=== PATIENT | female | born 1980 | race Two or more races ===

== ENCOUNTER 2017-06-30 06:03 | Day surgery (SDC) | payer BC ==
[~2017-06-30] VITALS: Ht 165.1 cm; Wt 131.3 kg
--- NOTE | ~2017-06-30 | OR ---
PATIENT'S NAME: CLARA HACKETT [facility] AGE: 36 Y [address] ROOM: [place] [address] [place] [facility] [place]: 06/30/2017 OR/Procedure Report DISCHARGE DATE: FAMILY PHYSICIAN: Leslie Blake MD ATTENDING PHYSICIAN: Atif Baker SURGEON: Atif Baker MD ROOF TILER: Tomi Chinchilla PA-C. DATE OF PROCEDURE: 06/30/2017 PREOPERATIVE DIAGNOSIS: Right thyroid nodule suspicious for malignancy. POSTOPERATIVE DIAGNOSIS: Follicular neoplasm. PROCEDURE PERFORMED: Right thyroid lobectomy. SURGEON: Atif Baker MD. FINDINGS: There was a firm nodule in the mid thyroid posteriorly making dissection near the ligament of Salazar quite difficult. Recurrent laryngeal nerve was able to be identified. This easily stimulated at the conclusion of the case. ESTIMATED BLOOD LOSS: Less than 30 mL. COMPLICATIONS: None. INDICATIONS: The patient is a 36-year-old female who had presented with a right-sided thyroid nodule, this was solitary. We performed biopsy that was suspicious for malignancy, we discussed total thyroidectomy versus lobectomy and frozen section. Ultimately, she wished to proceed with lobectomy. Risks, benefits, and alternatives were discussed with the patient which include, but are not limited to, bleeding, infection, recurrent laryngeal nerve injury, as well as palsy, vascular injury, and need for repeat operations. She understood the risks and elected to proceed. DESCRIPTION OF PROCEDURE: The patient was taken into the operating room. She was supine. She was given IV sedation and subsequently intubated. She had an endotracheal tube in that we could perform nerve monitoring. A collar incision was created within the skin lines, carried into the subcutaneous tissues and through the platysma using electrocautery. Subplatysmal flaps were created. The strap muscles were then divided in the midline, retracted laterally exposing the right thyroid gland. The middle thyroid vein was identified, divided with the Harmonic scalpel. We turned our attention to the superior pole continuing to dissect on the gland, dissect around the superior pole, superior polar vessels were divided with the Harmonic scalpel. We then PATIENT'S NAME: CLARA HACKETT [facility] AGE: 36 Y [address] ROOM: [place] [address] [place] [facility] [place]: 06/30/2017 OR/Procedure Report DISCHARGE DATE: FAMILY PHYSICIAN: Leslie Blake MD ATTENDING PHYSICIAN: Atif Baker turned our attention inferiorly below the ligament of Salazar. We were able to identify the recurrent laryngeal nerve and traced this towards the ligament of Salaazr. This was a very difficult dissection in this area. We further mobilized the inferior pole, divided the inferior polar vessels, continued to dissect out the recurrent laryngeal nerve in order to avoid injury. The nodule was relatively adherent in this area and again was overlying the nerve although did not appear to involve the nerve. We were able to dissect the nerve from the nodule and ultimately able to divide the ligament of Salazar. The recurrent laryngeal nerve was stimulated and appeared to be no injury and prior to this, we had confirmed that this was the nerve by stimulation. The right thyroid gland was then removed from the trachea using electrocautery. This was divided at the isthmus and sent for frozen section. Frozen section revealed a follicular neoplasm. Malignancy could not be called by the pathologist although I did have some concerns about malignancy; however, with no nodules being present in the left, we ultimately elected to complete the operation and wait for final pathology. The operative field was inspected. It appeared hemostatic. The strap muscles were reapproximated in the midline using 3-0 silk suture. The platysma was reapproximated with 3-0 Vicryl suture and skin closed with 4-0 Monocryl suture. Steri-Strips and sterile dressings were placed. The patient was extubated and sent to recovery in good condition. ATIF BAKER MD BJO/modl /[id number] d: 06/30/17 1508 t: 07/07/17 1331, OPERATIVE SUMMARY
[~2017-06-30 06:03] MED LIST: GLUCOPHAGE XR500 M1 PO; GLYXAMBI 25 MG1 EACH PO; IBUPROFEN400 MG PO; MULTI VITAMIN1 EACH PO; OMEPRAZOLE40 MG PO; PRINIVIL (ZESTR20 MG PO; ZOCOR40 MG PO
[2017-06-30] MEDS ORDERED: ASPIRIN LO-DOSE81 MG PO (06:49)
[2017-07-01] MEDS ORDERED: NORCO 5-325 TA1 EACH PO (08:44)
== END 2017-07-01 10:45 | disposition disaster alternative care site (69) ==
LOC: GSDC 06:03 → GMSU 06:03 → GSDC 07-01 10:45
PROC: 0GTH0ZZ Resection of Right Thyroid Gland Lobe, Open Approach (ICD-10-PCS; principal; 2017-06-30)
DX: C73 Malignant neoplasm of thyroid gland (principal); I10 Essential (primary) hypertension; E11.9 Type 2 diabetes mellitus without complications; F32.9 Major depressive disorder, single episode, unspecified; K21.9 Gastro-esophageal reflux disease without esophagitis; J30.2 Other seasonal allergic rhinitis; E78.2 Mixed hyperlipidemia
CPT/HCPCS: J0690; J1100; J2001; J2405; J7030; J7040; J7120

== ENCOUNTER 2017-07-05 09:10 | Day surgery (SDC) | payer BC ==
[~2017-07-05] VITALS: Ht 162.6 cm; Wt 130.0 kg
--- NOTE | ~2017-07-05 | OR ---
PATIENT'S NAME: CLARA HACKETT [facility] AGE: 36 Y [address] ROOM: [address] [address] [place] [facility] [place]: 07/05/2017 OR/Procedure Report DISCHARGE DATE: FAMILY PHYSICIAN: Leslie Blake MD ATTENDING PHYSICIAN: Atif Baker SURGEON: Atif Baker MD GEAR MACHINE OPERATOR GENERAL: Tomi Chinchilla PA-C. DATE OF PROCEDURE: 07/05/2017 PREOPERATIVE DIAGNOSIS: Papillary thyroid cancer right lobe with need for completion thyroidectomy. 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 PROCEDURE: Completion of thyroidectomy. FINDINGS: No nodules were present in the left lobe. No gross evidence of lymph node involvement. ESTIMATED BLOOD LOSS: 30 mL. COMPLICATIONS: None. INDICATIONS: The patient is a 36-year-old female, who had a right lobectomy that revealed a papillary thyroid carcinoma. We felt completion of thyroidectomy and was necessary discussed this with the patient. The risks, benefits, and alternatives, including nerve injury, hypocalcemia. She understood the risks and elected to proceed. DESCRIPTION OF PROCEDURE: The patient was taken to the operating room. She was supine. She was given IV sedation, subsequently intubated. Her neck was prepped with ChloraPrep and sterilely draped. Her previous incision was reopened. The sutures holding the platysma as well as the strap muscles were divided and removed. This expose the left thyroid lobe. This was retracted medially. Middle thyroid vein was divided with the Harmonic scalpel. We had previously dissected in this plane as we felt we were going to need to perform a completion of thyroidectomy, however, frozen section could not confirm malignancy. After the middle thyroid vein was identified, we dissected. We were able to further mobilize the thyroid gland medially. We identified the recurrent laryngeal nerve. Confirmed this with the nerve monitor. Then, turned our attention to the superior pole. We were able to skeletonize the superior pole and divided the superior pole vessels on the thyroid gland. We turned our attention inferiorly, divided the inferior polar vessels. Then, we turned our attention towards the ligament of Salazar. The nerve was identified PATIENT'S NAME: CLARA HACKETT [facility] AGE: 36 Y [address] ROOM: [address] [address] [place] [facility] [place]: 07/05/2017 OR/Procedure Report DISCHARGE DATE: FAMILY PHYSICIAN: Leslie Blake MD ATTENDING PHYSICIAN: Atif Baker dissected free from the thyroid tissue these tissues were divided both with electrocautery as well as the Harmonic scalpel. The thyroid was then removed from the trachea using electrocautery. It was passed off as specimen. The operative field was then inspected. There was no gross lymph node involvement. The recurrent laryngeal nerve was again stimulated and had appropriate stimulation. The operative field was inspected. It appeared hemostatic. The strap muscles were reapproximated with 3-0 silk suture. The platysma reapproximated with 3-0 Vicryl suture and skin closure with 4-0 Monocryl suture. Steri-Strips and sterile dressings were placed. The patient was extubated and sent to recovery in good condition. ATIF BAKER MD BJO/modl /[id number] d: 07/05/172141 t: 07/07/17 1331, OPERATIVE SUMMARY
[~2017-07-05 09:10] MED LIST changes: +ASPIRIN LO-DOSE81 MG PO; +NORCO 5-325 TA1 EACH PO
[2017-07-06] MEDS ORDERED: TUMS REGULAR ST1 TAB PO (13:22)
[2017-07-06] MEDS ORDERED: LEVOTHROID (S200 MCG PO (13:31)
== END 2017-07-06 13:50 | disposition disaster alternative care site (69) ==
LOC: GMSU 09:10 → GSDC 09:10 → GMSU 09:11 → GSDC 09:30 → GMSU 14:02 → GSDC 07-06 13:50
PROC: 0GTK0ZZ Resection of Thyroid Gland, Open Approach (ICD-10-PCS; principal; 2017-07-05)
DX: C73 Malignant neoplasm of thyroid gland (principal); I10 Essential (primary) hypertension; K21.9 Gastro-esophageal reflux disease without esophagitis; E66.01 Morbid (severe) obesity due to excess calories; Z68.43 Body mass index [BMI] 50.0-59.9, adult; E11.9 Type 2 diabetes mellitus without complications; Z98.890 Other specified postprocedural states
CPT/HCPCS: J0690; J2001; J2250; J2765; J7030